=== PATIENT | male | born 1995 | race Caucasian/White ===

== ENCOUNTER 2017-05-18 11:04 | Emergency (ER) | payer BC, OTHER ==
[2017-05-18 11:09] VITALS: BP 135/70
[2017-05-18] MEDS ORDERED: DOXY100C2 PO (11:25)
--- NOTE | 2017-05-18 11:25 | PHYS DOC ---
Past Medical History Past Medical History: No Pertinent History Past Surgical History: Appendectomy Alcohol Use: Occasionally Drug Use: None Adult General Chief Complaint Chief Complaint: INSECT BITE [facility] HPI Patient is a 22 year old male presents to the emergency department stating that he thinks he was bit by a spider or some type of insect on his right side of his abdomen. Patient states he noticed this area on . He denies any drainage or discharge coming from the site. He does state he has had a headache. He is taken Tylenol for the headache with minimal relief. Patient denies any fever, chills or any nausea vomiting. He denies any drainage or discharge coming from the site. He does state is very tender and warm. Review of Systems Review of Systems Constitutional: Denies fever or chills [] Eyes: Denies change in visual acuity, redness, or eye pain [] HENT: Denies nasal congestion or sore throat [] Respiratory: Denies cough or shortness of breath [] Cardiovascular: No additional information not addressed in HPI [] GI: Denies abdominal pain, nausea, vomiting, bloody stools or diarrhea [] : Denies dysuria or hematuria [] Musculoskeletal: Denies back pain or joint pain [] Integument: Denies rash or skin lesions. Questionable insect bite right side lower abdomen Neurologic: Denies headache, focal weakness or sensory changes [] Endocrine: Denies polyuria or polydipsia [] Allergies Allergies Allergies Coded Allergies Type Severity Reaction Last Updated Verified No Known Drug Allergies 02/28/15 No Physical Exam Physical Exam Constitutional: Well developed, well nourished, no acute distress, non-toxic appearance. [] HENT: Normocephalic, atraumatic, bilateral external ears normal, oropharynx moist, no oral exudates, nose normal. [] Eyes: PERRLA, EOMI, conjunctiva normal, no discharge. [] Neck: Normal range of motion, no tenderness, supple, no stridor. [] Cardiovascular:Heart rate regular rhythm, no murmur [] Lungs & Thorax: Bilateral breath sounds clear to auscultation [] Skin: Warm, dry, no erythema, no rash. Patient's with a reddened area with a sitter. Be slightly darker with a white spot in the middle. The area appears to be the size of a quarter. Patient does have tenderness noted warmth and redness. No drainage or discharge. Back: No tenderness, Extremities: No tenderness, no cyanosis, no clubbing, ROM intact, no edema. [] Neurologic: Alert and oriented X 3, normal motor function, normal sensory function, no focal deficits noted. [] Psychologic: Affect normal, judgement normal, mood normal. [] Current Patient Data Vital Signs Vital Signs Date Time Temp Pulse Resp B/P (MAP) Pulse Ox O2 Delivery O2 Flow Rate FiO2 05/18/17 11:09 98.2 94 18 99 Room Air 98.2 EKG EKG [] Radiology/Procedures Radiology/Procedures [] Course & Med Decision Making Course & Med Decision Making Pertinent Labs and Imaging studies reviewed. (See chart for details) Patient's tetanus immunization is less than 5 years. Patient will be placed on doxycycline 1 tablet twice a for the next 10 days. Recommended Tylenol or ibuprofen for pain and discomfort. Also recommended warm moist packs to the right side. Recommended calling 5 times a day for 20 minutes at a time. Patient will be discharged home in stable condition. Signs and symptoms to return back to emergency department been provided. Patient agrees with discharge instructions, treatment regimens and follow-up recommendations. [] Dragon Disclaimer Dragon Disclaimer This electronic medical record was generated, in whole or in part, using a voice recognition dictation system. Departure Departure Impression: Primary Impression: Abscess Disposition: 01 HOME, SELF-CARE Condition: STABLE Referrals: NO PCP (PCP) Patient Instructions: Abscess, [id number] Additional Instructions: Keep the area clean and dry. Clean the site twice a day with soap and water in the apply antibiotic ointment to the area. Warm soaks to the area 5 times a day 20 minutes at a time. Medication as prescribed. Tylenol or ibuprofen for headaches February chills or generalized body aches and discomfort. Follow-up to primary care physician next 3-5 days. Return back to emergency prior signs symptoms of become worse. Scripts Doxycycline Hyclate (DOXYCYCLINE HYCLATE) 100 Mg Capsule 1 CAP PO BID, #20 CAP Prov: BECKY BASS APRN 05/18/17 BECKY BASS APRN May 18, 2017 11:25
== END 2017-05-18 11:36 | disposition home or self-care (01) ==
LOC: ER 11:04
DX: L02.211 Cutaneous abscess of abdominal wall (principal); R51 Headache
CPT/HCPCS: 99283